=== PATIENT | female | born 1955 | race Caucasian/White ===

== ENCOUNTER 2017-04-06 07:00 | Inpatient (IN) ==
[2017-04-06] MEDS ORDERED: ONDANSETRON 4 MG/2 ML VIAL IV PRN (15:27)
[2017-04-06] MEDS ORDERED: ACETAMINOPHEN 325 MG TABLET PO PRN (15:27)
[2017-04-06] MEDS ORDERED: MAGNESIUM SULF RIDER 4 GM in PREMIX 1 EACH IV PRN (15:27)
[2017-04-06] MEDS ORDERED: DOCUSATE SODIUM 100 MG CAPSULE PO PRN (15:27)
[2017-04-06] MEDS ORDERED: MAGNESIUM SULF RIDER 2 GM in PREMIX 1 EACH IV PRN (15:27)
[2017-04-06] MEDS ORDERED: ZALEPLON 5 MG CAPSULE PO PRN (15:27)
[2017-04-06] MEDS ORDERED: POTASSIUM CHLORIDE 20 MEQ TABLET PO PRN (15:27)
[2017-04-06] MEDS ORDERED: diphenhydrAMINE CAP 25 MG CAPSULE PO PRN (15:27)
[2017-04-06] MEDS ORDERED: FUROSEMIDE 20 MG TABLET PO PRN (15:36)
[2017-04-06 15:55] LABS: Basophils % 0.6 % (0.0-0.8); Eosinophils # 0.1 10*3/uL (0.0-0.87); Hemoglobin 11.9 GM/DL (12.0-16.0); Immature Granulocytes % 0.2 %; Immature Granulocytes Absolute 0.01 #; Lymphocytes # 1.5 10*3/uL (1.4-4.0); Lymphocytes % 30.1 % (21.3-54.2); Mean Corpuscular HGB Conc 33.1 GM/DL (32-36); Mean Corpuscular Hemoglobin 29 PG (27-34); Mean Corpuscular Volume 87.6 FL (87-102); Mean Platelet Volume 11.1 FL (9.6-12.0); Monocytes # 0.5 10*3/uL (0.11-0.8); Neutrophils # 2.8 10*3/uL (1.4-7.4); Neutrophils % 57.1 % (38.7-73.9); Platelet Count 218 T/CUMM (130-400); Red Blood Count 4.11 MC/CUMM (3.8-5.5); Red Cell Distribution Width 15.2 % (9.3-17.3); White Blood Count 4.9 T/CUMM (4-12)
--- NOTE | 2017-04-06 15:56 | Cardiology History & Physical ---
Assessment and Plan - Time spent with patient Time spent with patient: Greater than 30 minutes (Due to assessment, plan, documentation, and medication review.) (1) Atrial fibrillation Status: Acute Assessment and plan: See plan of care listed below. Current Visit: Yes Qualifiers: Atrial fibrillation type: persistent Qualified Code(s): I48.1 - Persistent atrial fibrillation (2) Chronic anticoagulation Status: Chronic Assessment and plan: See plan of care listed below. Current Visit: Yes (3) Hypertension Status: Chronic Assessment and plan: See plan of care listed below. Current Visit: Yes Qualifiers: Hypertension type: essential hypertension Qualified Code(s): I10 - Essential (primary) hypertension (4) Mitral regurgitation Status: Chronic Assessment and plan: See plan of care listed below. Current Visit: No (5) History of GI bleed Status: Chronic Assessment and plan: See plan of care listed below. Current Visit: No History of Present Illness Chief complaint: persistent atrial fibrillation, sotalol load and cardioversion Sunday History of present illness: Industrial Designer: Dr. Cabezas/Dr. Lynn PCP: Dr. Orta Ms. Vasques is a 61 y/o WF who has a history of atrial fibrillation, chronic anticoagulation with Eliquis, hypertension, mitral regurgitation, bradycardia. She is a lifetime nonsmoker and has a family history of premature CAD. She was referred to Dr. Cabezas for EP evaluation due to symptomatic persistent atrial fibrillation. She first noticed AF in 2015, for which she underwent cardioversion, amiodarone, and digoxin. THis caused symptomatic bradycardia, with pauses up to 3 seconds, and meds were stopped. She had severe lower GI bleed, while being anticoagulated, underwent colon resection due to multiple polyps, the bleeding resolved. Now, she is able to tolerate Eliquis without issues. In 02/2017, the AF relapsed with RVR. She is now also on Metoprolol. She is feeling palpitations, intermittent lower extremity swelling, and less energy with the arrhythmia. She reports that she does snore but has not been tested for sleep apnea and is not interested in sleep evaluation at this time. Her blood pressure is usually well controlled. Her EKG at recent clinic visit on 04/10 showed atrial fibrillation with rate of 96, QRS 90ms. Echo done on revealed normal LV systolic function of 55%, moderate biatrial enlargement, moderate MR, mild TR with moderate pulmonary hypertension, PAP 44mmHg, no significant valvular disease. Ms. Vasques was admitted to the hospital today for inpatient sotalol load and cardioversion due to symptomatic arrhythmia. We will cycle daily EKGs and monitor throughout the weekend. Dr. Cabezas will assume care on Sunday when she will be scheduled for cardioversion if she remains in symptomatic persistent atrial fibrillation. She continues to have some mild dyspnea on exertion and palpitations and is in atrial fibrillation per impregnation operator. Dr. Mcallister to follow with further plan and addendum. IMPRESSION/PLAN: - PERSISTENT ATRIAL FIBRILLATION: Admit for sotalol load. Daily EKGs. NPO after midnight on Sunday in anticipation for possible DCCV Sunday. - CHRONIC ANTICOAGULATION: Continue Eliquis. Monitor CBC. - HYPERTENSION: Mildly elevated upon admission. Will continue home medications , monitor, and adjust accordingly. - MITRAL REGURGITATION: Moderate per echo on 04/03/17. This will likely limit success rate for lasting rhythm control. It has been discussed with the patient that depending on her clinical course with pharmacological management, she could be a candidate for ablation or pacemaker implant in the future. - HISTORY OF GI BLEED: Currently stable, no s/s of recent bleeding. Home Medications Medication Instructions Recorded Confirmed Type Calcium (Carbonate) [Oscal 500] 1 tablet PO DAILY 12/11/15 04/06/17 History Multivitamin [One Daily] 1 each PO DAILY 12/11/15 04/06/17 History Magnesium Oxide [Magnesium] 400 mg PO DAILY 03/22/16 04/06/17 History Lisinopril [Zestril] 5 mg PO DAILY 06/05/16 04/06/17 History Acetaminophen Tab [Tylenol Tab] 325 mg PO Q4H PRN #0 tablet 06/07/16 04/06/17 Rx Pantoprazole Tab [Protonix Tab] 40 mg PO DAILY #30 tablet 06/07/16 04/06/17 Rx HYDROcodone/ACETAMIN 7.5-325 1 tablet PO Q4H PRN #30 tablet 08/01/16 04/06/17 Rx [[place] 7.5-325] Apixaban [Eliquis] 5 mg PO BID #60 tablet 03/10/17 04/06/17 Rx Furosemide Tab [Lasix Tab] 20 mg PO DAILY PRN 04/06/17 04/06/17 History Metoprolol Succinate Xl [Toprol Xl] 50 mg PO BID 04/06/17 04/06/17 History Allergies Allergy/AdvReac Type Severity Reaction Status Date / Time Sulfa (Sulfonamide Allergy Unknown ITCHING Verified 07/18/16 13:54 Antibiotics) Review of systems: - Constitutional: Present: As per HPI. Absent: anorexia, chills, daytime sleepiness, excessive sweating, fever(s), frequent falls, headache(s), increased appetite, lethargy, malaise, night sweats, stops breathing during sleep, weakness, weight gain, weight loss, fatigue. - EENT Eyes: Present: As per HPI. Absent: blurry vision, diplopia, loss of vision Ears: Present: As per HPI. Absent: decreased hearing, ear discharge, ear pain Nose, mouth and throat: Present: As per HPI. Absent: dysphagia, epistaxis, headache(s), hoarseness, lip swelling, nasal congestion, neck mass, neck pain, sinus pressure, sore throat, throat swelling, tongue swelling, vertigo - Cardiovascular: Present: dyspnea on exertion, edema, palpitations, as per HPI. Absent: chest pain at rest, chest pain with activity, dyspnea, claudication, diaphoresis, radiating jaw, neck or arm pain, lightheadedness, orthopnea, PND - Respiratory: Present: dyspnea on exertion, as per HPI. Absent: dyspnea, cough , hemoptysis, wheezing, snoring, pain on inspiration - Gastrointestinal: Present: heartburn, As per HPI. Absent: abdominal pain, bloating, change in bowel habits, constipation, diarrhea, hematemesis, hematochezia, loose stools, melena, nausea, vomiting - Genitourinary: Present: As per HPI. Absent: difficulty urinating, dysuria, flank pain, hematuria, nocturia, urinary frequency, urinary incontinence - Musculoskeletal: Present: As per HPI. Absent: arthralgias, back pain, joint swelling, limited range of motion, muscle cramps, muscle weakness, myalgias - Neurological: Present: disequilibrium, As per HPI. Absent: abnormal gait, abnormal speech, behavioral changes, confusion, convulsions, dizziness, focal weakness, frequent falls, headache(s), memory loss, numbness, paresthesias, radicular pain, syncope, tremor(s) - Psychiatric: Present: depression, As per HPI. Absent: anxiety, confusion, panic attacks - Endocrine: Present: As per HPI. Absent: cold intolerance, fatigue, heat intolerance, polydipsia, polyphagia - Hematologic/Lymphatic: Present: As per HPI. Absent: easy bleeding, easy bruising, lymphadenopathy Medical,Surgical,& Family Hx - Medical History Cardio: History of: Cardiac Dysrhythmia (atrial fibrilation - DCCV 03/22/2016), Congenital Heart Disease ("leaky valve"), Hypertension, Valvular Heart Disease ( mitral regurgitation), Cardiovascular Problems (bradycardia) No history of: Cerebrovascular Disease, CHF Neurology: History of: Vertigo No history of: Seizures Genitourinary: No history of: Bladder Problem, Kidney Stones Gastrointestinal: History of: GERD, Gastrointestinal Bleed, Hemorrhoids Musculoskeletal: History of: Osteoporosis Hematology: History of: Anemia, Blood Transfusion Reaction (4 units of blood on 2015) Reproductive: No history of: Breast Cancer Other: History of: Miscellaneous Medical Problems (lumpectomy) No history of: Anesthesia Reactions, Cancer - Surgical History Cardiac Surgeries: Patient Denies: Cardiac Catheterization Thoracic Surgeries: Patient denies;: Organ Transplant Neurologic Surgeries: Patient denies: Neurologic Surgery HEENT Surgeries: Surgical HX of: Eye Surgery (Lasik) Patient denies: Tonsilectomy & Adenoidectomy Abdominal Surgeries: Surgical HX of: Abdominal Surgery (Colectomy 06/2016), EGD Patient denies: Appendectomy, Cholecystectomy, Colonoscopy, Hernia Repair Reproductive Surgeries: Surgical HX of;: Breast Surgery (right lumpectomy) Patient denies;: Hysterectomy Orthopedic Surgeries: Patient denies;: Orthopedic Surgery, Total Hip Replacement, Total Knee Replacement - Family History Family History: Reports;: Family Cancer (mother lung ca (age 68) - smoker, emphysema), Family Heart Disease (father from [place] at age 55, had CAD), Family Hypertension - Social History Smoking Status: Never smoker Frequency of Alcohol Use: Occasionally Type of Drug Use: None Marital Status: Lives With:: Spouse Functional capacity: independent ambulation Cardiology Physical Exam - Constitutional Vitals: Vital Signs Temp Pulse Resp BP Pulse Ox 98.3 F 89 20 161/86 100 04/06/17 15:13 04/06/17 15:13 04/06/17 15:13 04/06/17 15:13 04/06/17 15:13 Intake and Output 04/06/17 04/06/17 04/06/17 06:59 14:59 22:59 Other: Weight 165 lb Patient Weight 04/07/17 06:59 Weight 165 lb Exam: General appearance: Appears well. Pleasant and cooperative. Overweight, no acute distress. Head exam: Present: normal inspection, normocephalic, atraumatic. Absent: hematoma, laceration Eye exam: Present: EOMI. Absent: conjunctival injection, nystagmus, periorbital swelling, scleral icterus, laceration to eyelids, jaundice Pupils: Present: PERRL. Absent: constricted, dilated, fixed, irregular, unequal ENT exam: Present: normal exam, normal external ear exam, mucous membranes moist. Neck exam: Present: normal inspection, midline trachea. Absent: masses, lymphadenopathy, tenderness, thyromegaly, carotid bruit Respiratory exam: Present: clear to auscultation bilaterally. Absent: accessory muscle use, chest wall tenderness, rales, rhonchi, wheezing. Cardiovascular exam: Present: regular rate and rhythm. Absent: gallop, JVD, rubs, murmur GI/Abdominal exam: Present: normal bowel sounds, soft. Absent: distended, firm , hernia, mass, tenderness. Extremities exam: Present: Normal Gait, No Clubbing, No Cyanosis, Upper Extr. Pulses 2+, Lower Extr. Pulses 2+, No edema. Capillary refill less than 3 seconds. Musculoskeletal: Present: No Fluid Collection, No Pain, Normal Range of Motion Back exam: Present: normal inspection. Absent: muscle spasm, vertebral tenderness Neurological exam: Present: awake, alert, oriented X3, Moves all extremities well without hemiparesis or paralysis. Grossly intact without resting or essential tremor Psychiatric exam: Present: normal affect, normal mood Skin exam: Present: normal color, warm, dry, intact. Absent: cyanosis, diaphoretic, rash, urticaria Result/EKG - Labs CBC & BMP: 04/06/17 15:45 04/06/17 15:45 Lab Results: I have reviewed the past 24 hour labs - EKG EKG results: interpreted by me EKG shows: atrial fibrillation
--- NOTE | 2017-04-06 16:08 | Order Completion Report ---
See report scanned to EMR
[2017-04-06 16:19] LABS: Osmolality,Calculated 282.3 MOS/KG (273-304); Potassium 4.2 MMOL/L (3.5-5.1)
[2017-04-06] MEDS: CALCIUM (CARBONATE) 500 MG TABLET PO SCH (16:32)
[2017-04-06] MEDS: MAGNESIUM OXIDE 400 MG TABLET PO SCH (16:33)
[2017-04-06] MEDS: LISINOPRIL 5 MG TABLET PO SCH (16:33)
[2017-04-06] MEDS: PANTOPRAZOLE 40 MG TABLET PO SCH (16:33)
--- NOTE | 2017-04-06 17:15 | XRay Report ---
History: Shortness of breath Date: 04/06/2017 Study: Chest x-ray PA and lateral Comparison exam: March 10, 2017 The cardiac silhouette is upper normal in size. There is no mediastinal mass. There is no layering pleural effusion. The lungs are well-expanded and generally clear without confluent infiltrate. Osseous structures are unchanged. Impression: No acute cardiopulmonary process. No significant interval change PROCEDURE INTERPRETED AT [facility] DEPARTMENT OF RADIOLOGY Final Report Signed by: Dr. Michelle Raymundo
[2017-04-06 19:38] LABS: Apearance,Urine CLEAR (Clear); Bilirubin,Urine Negative (Negative); Blood, Urine Negative (Negative); Glucose,Urine (UA) Negative (Negative); Ketones,Urine Negative (Negative); Nitrite,Urine Negative (Negative); Protein,Urine Negative; Urine Color Colorless (Yellow); Urine Specific Gravity 1.003 (1.001-1.035); Urine Urobilinogen < 2.0 EU/DL (0.2-1.0); WBC,Urine 1 /HPF (0-6)
[2017-04-06] MEDS ORDERED: METOPROLOL SUCCINATE XL 50 MG TABLET PO SCH (21:00)
[2017-04-06] MEDS: APIXABAN 5 MG TABLET PO SCH (22:03)
[2017-04-06] MEDS: SOTALOL 80 MG TABLET PO SCH (22:04)
[2017-04-07 04:11] LABS: Basophils % 0.9 % (0.0-0.8); Eosinophils # 0.1 10*3/uL (0.0-0.87); Eosinophils % 2.5 % (0.00-10.9); Hematocrit 35.8 VOL% (35.7-47.0); Hemoglobin 11.6 GM/DL (12.0-16.0); Immature Granulocytes % 0.2 %; Immature Granulocytes Absolute 0.01 #; Lymphocytes # 1.5 10*3/uL (1.4-4.0); Lymphocytes % 33.8 % (21.3-54.2); Mean Corpuscular HGB Conc 32.4 GM/DL (32-36); Mean Corpuscular Hemoglobin 28 PG (27-34); Mean Corpuscular Volume 86.3 FL (87-102); Mean Platelet Volume 11.2 FL (9.6-12.0); Monocytes # 0.5 10*3/uL (0.11-0.8); Monocytes % 11.3 % (1.7-12.7); Neutrophils # 2.3 10*3/uL (1.4-7.4); Neutrophils % 51.3 % (38.7-73.9); Platelet Count 197 T/CUMM (130-400); Red Blood Count 4.15 MC/CUMM (3.8-5.5); Red Cell Distribution Width 15.2 % (9.3-17.3); White Blood Count 4.4 T/CUMM (4-12)
[2017-04-07 04:36] LABS: Calcium 9.3 MG/DL (8.5-10.1); Magnesium 1.9 MG/DL (1.8-2.4); Osmolality,Calculated 285.1 MOS/KG (273-304); Potassium 4.5 MMOL/L (3.5-5.1)
--- NOTE | 2017-04-07 08:44 | Order Completion Report ---
See report scanned to EMR
[2017-04-07] MEDS: PANTOPRAZOLE 40 MG TABLET PO SCH (09:56)
[2017-04-07] MEDS: MULTIVITAMIN (CENTRUM) TABLET PO SCH (09:56)
[2017-04-07] MEDS: MAGNESIUM OXIDE 400 MG TABLET PO SCH (09:56)
[2017-04-07] MEDS: SOTALOL 80 MG TABLET PO SCH ×2 (09:57→20:32)
[2017-04-07] MEDS: APIXABAN 5 MG TABLET PO SCH ×2 (09:57→20:31)
[2017-04-07] MEDS: CALCIUM (CARBONATE) 500 MG TABLET PO SCH (09:58)
[2017-04-07] MEDS: LISINOPRIL 5 MG TABLET PO SCH (10:05)
--- NOTE | 2017-04-07 14:28 | Cardiology Progress Note ---
Cardiology - PN: Subj Interval history: Cardiology note 61-year-old woman with recurrent symptomatic paroxysmal atrial fibrillation. Currently receiving sotalol loading 80 mg twice daily and Eliquis 5 mg twice daily. Telemetry shows atrial fib ventricular rate in the 90-100 range. O2 sat 96% room air. She denies chest pain palpitations or leg edema. Irregular rhythm no murmur Clear lungs Abdomen benign No leg edema Impression Recurrent symptomatic atrial fibrillation Chronic anticoagulation Hypertension Mitral regurgitation Echo Doppler done 04/03/2017 EF 55% with moderate biatrial enlargement moderate MR, moderate TR PA pressure 45 and no effusion Lifetime non-smoker Status post cardioversion 2015 she developed symptomatic bradycardia with pauses on amiodarone Plan Sotalol 80 mg twice daily Eliquis 5 mg twice daily Cardioversion Sunday Exam (Progress Note) - Constitutional Vitals: Period Temp Pulse Resp BP Sys/Hernandez Pulse Ox Last 24 Hr 96.4 F-98.3 F 69-89 16-20 133-161/84-90 98-100 Result/EKG - Labs CBC & BMP: 04/07/17 03:44 04/07/17 03:44 Labs: Laboratory Results - last 24 hr 04/06/17 04/06/17 04/06/17 15:45 15:45 18:00 WBC 4.9 RBC 4.11 Hgb 11.9 L Hct 36.0 MCV 87.6 MCH 29 MCHC 33.1 RDW 15.2 Plt Count 218 MPV 11.1 Neut % (Auto) 57.1 Lymph % (Auto) 30.1 [place] % (Auto) 11.0 Eos % (Auto) 1.0 Baso % (Auto) 0.6 Neut # (Auto) 2.8 Lymph # (Auto) 1.5 [place] # (Auto) 0.5 Eos # (Auto) 0.1 Baso # (Auto) 0.0 Immature Gran % 0.2 Nucleated RBC % 0.0 Immature Gran # 0.01 Nucleated RBCs # 0.00 Immature Plt Fraction 0.0 Sodium 141 Potassium 4.2 Chloride 107 Carbon Dioxide 30 Anion Gap 8.2 BUN 22 H Creatinine 1.40 H GFR Calculation 43 BUN/Creatinine Ratio 15.00 Glucose 82 Calculated Osmolality 282.3 Calcium 9.0 Magnesium Urine Color Colorless Urine Appearance Clear Urine pH 7.0 Ur Specific Carrier 1.003 Urine Protein Negative Urine Glucose (UA) Negative Urine Ketones Negative Urine Blood Negative Urine Nitrate Negative Urine Bilirubin Negative Urine Urobilinogen < 2.0 H Urine Leukocytes Negative Urine WBC 1 Ur Culture Indicated? Not indicated 04/07/17 04/07/17 03:44 03:44 WBC 4.4 RBC 4.15 Hgb 11.6 L Hct 35.8 MCV 86.3 L MCH 28 MCHC 32.4 RDW 15.2 Plt Count 197 MPV 11.2 Neut % (Auto) 51.3 Lymph % (Auto) 33.8 [place] % (Auto) 11.3 Eos % (Auto) 2.5 Baso % (Auto) 0.9 H Neut # (Auto) 2.3 Lymph # (Auto) 1.5 [place] # (Auto) 0.5 Eos # (Auto) 0.1 Baso # (Auto) 0.0 Immature Gran % 0.2 Nucleated RBC % 0.0 Immature Gran # 0.01 Nucleated RBCs # 0.00 Immature Plt Fraction 0.0 Sodium 142 Potassium 4.5 Chloride 108 H Carbon Dioxide 26 Anion Gap 12.5 BUN 20 H Creatinine 1.00 GFR Calculation 64 BUN/Creatinine Ratio 20.00 Glucose 100 Calculated Osmolality 285.1 Calcium 9.3 Magnesium 1.9 Urine Color Urine Appearance Urine pH Ur Specific Carrier Urine Protein Urine Glucose (UA) Urine Ketones Urine Blood Urine Nitrate Urine Bilirubin Urine Urobilinogen Urine Leukocytes Urine WBC Ur Culture Indicated?
[2017-04-08 04:50] LABS: Basophils # 0.1 10*3/uL (0.0-0.2); Basophils % 1.3 % (0.0-0.8); Eosinophils # 0.1 10*3/uL (0.0-0.87); Eosinophils % 2.8 % (0.00-10.9); Hemoglobin 13.1 GM/DL (12.0-16.0); Immature Granulocytes % 0.3 %; Immature Granulocytes Absolute 0.01 #; Lymphocytes # 1.3 10*3/uL (1.4-4.0); Lymphocytes % 32.5 % (21.3-54.2); Mean Corpuscular HGB Conc 32.8 GM/DL (32-36); Mean Corpuscular Hemoglobin 28 PG (27-34); Mean Corpuscular Volume 86.8 FL (87-102); Mean Platelet Volume 12.3 FL (9.6-12.0); Monocytes # 0.4 10*3/uL (0.11-0.8); Monocytes % 11.1 % (1.7-12.7); Platelet Count 130 T/CUMM (130-400); Red Blood Count 4.61 MC/CUMM (3.8-5.5); Red Cell Distribution Width 15.2 % (9.3-17.3); White Blood Count 3.9 T/CUMM (4-12)
[2017-04-08 05:19] LABS: Calcium 9.6 MG/DL (8.5-10.1); Magnesium 2.1 MG/DL (1.8-2.4); Osmolality,Calculated 283.1 MOS/KG (273-304); Potassium 4.9 MMOL/L (3.5-5.1)
[2017-04-08] MEDS: CALCIUM (CARBONATE) 500 MG TABLET PO SCH (08:11)
[2017-04-08] MEDS: MAGNESIUM OXIDE 400 MG TABLET PO SCH (08:11)
[2017-04-08] MEDS: PANTOPRAZOLE 40 MG TABLET PO SCH (08:11)
[2017-04-08] MEDS: SOTALOL 80 MG TABLET PO SCH ×2 (08:11→20:36)
[2017-04-08] MEDS: LISINOPRIL 5 MG TABLET PO SCH (08:11)
[2017-04-08] MEDS: MULTIVITAMIN (CENTRUM) TABLET PO SCH (08:11)
[2017-04-08] MEDS: APIXABAN 5 MG TABLET PO SCH ×2 (08:11→20:37)
--- NOTE | 2017-04-08 08:11 | Order Completion Report ---
See report scanned to EMR
--- NOTE | 2017-04-08 09:52 | Cardiology Progress Note ---
Cardiology - PN: Subj Interval history: Cardiology note 61-year-old woman with recurrent symptomatic paroxysmal atrial fibrillation. Currently receiving sotalol 80 mg twice daily and Eliquis 5 mg twice daily Telemetry shows atrial fib ventricular rate around 90 O2 sat 98% on room air. Blood pressure 118/80 Weight 75.7 kg Irregular rhythm no murmur Decreased breath sounds but clear Abdomen soft benign No leg edema Impression Recurrent symptomatic atrial fibrillation Chronic anticoagulation Hypertension Mitral regurgitation Lifetime non-smoker Status post cardioversion 2015. She developed symptomatic bradycardia with pauses on amiodarone Echo Doppler done April 03, 2017 EF 55% with moderate biatrial enlargement, moderate MR, moderate TR PA pressure 45 and no effusion Plan Continue sotalol 80 mg twice daily Continue Eliquis 5 mg twice daily Cardioversion Sunday with Dr. Cabezas Exam (Progress Note) - Constitutional Vitals: Period Temp Pulse Resp BP Sys/Hernandez Pulse Ox Last 24 Hr 97.3 F-99.2 F 74-88 16-20 117-137/73-92 97-99 Result/EKG - Labs CBC & BMP: 04/08/17 03:48 04/08/17 03:48 Labs: Laboratory Results - last 24 hr 04/08/17 04/08/17 03:48 03:48 WBC 3.9 L RBC 4.61 Hgb 13.1 Hct 40.0 MCV 86.8 L MCH 28 MCHC 32.8 RDW 15.2 Plt Count 130 D MPV 12.3 H Neut % (Auto) 52.0 Lymph % (Auto) 32.5 [place] % (Auto) 11.1 Eos % (Auto) 2.8 Baso % (Auto) 1.3 H Neut # (Auto) 2.0 Lymph # (Auto) 1.3 L [place] # (Auto) 0.4 Eos # (Auto) 0.1 Baso # (Auto) 0.1 Immature Gran % 0.3 Nucleated RBC % 0.0 Immature Gran # 0.01 Nucleated RBCs # 0.00 Immature Plt Fraction 0.0 Sodium 142 Potassium 4.9 Chloride 109 H Carbon Dioxide 26 Anion Gap 11.9 BUN 19 H Creatinine 0.90 GFR Calculation 73 BUN/Creatinine Ratio 21.00 H Glucose 88 Calculated Osmolality 283.1 Calcium 9.6 Magnesium 2.1
[2017-04-09 06:28] LABS: Basophils % 0.9 % (0.0-0.8); Eosinophils # 0.1 10*3/uL (0.0-0.87); Eosinophils % 1.9 % (0.00-10.9); Immature Granulocytes % 0.2 %; Immature Granulocytes Absolute 0.01 #; Lymphocytes # 1.2 10*3/uL (1.4-4.0); Lymphocytes % 27.6 % (21.3-54.2); Mean Corpuscular HGB Conc 33.3 GM/DL (32-36); Mean Corpuscular Hemoglobin 29 PG (27-34); Mean Corpuscular Volume 85.7 FL (87-102); Monocytes # 0.5 10*3/uL (0.11-0.8); Monocytes % 10.8 % (1.7-12.7); Neutrophils # 2.5 10*3/uL (1.4-7.4); Neutrophils % 58.6 % (38.7-73.9); Platelet Count 211 T/CUMM (130-400); Red Blood Count 4.55 MC/CUMM (3.8-5.5); White Blood Count 4.3 T/CUMM (4-12)
[2017-04-09 06:55] LABS: Calcium 8.9 MG/DL (8.5-10.1); Magnesium 2.2 MG/DL (1.8-2.4); Osmolality,Calculated 284.3 MOS/KG (273-304); Potassium 4.6 MMOL/L (3.5-5.1)
--- NOTE | 2017-04-09 07:21 | Order Completion Report ---
See report scanned to EMR
[2017-04-09] MEDS ORDERED: PROPOFOL 200 MG/20 ML VIAL IV ONE (08:22)
--- NOTE | 2017-04-09 08:23 | History and Physical Update ---
Sedation H&P Update - History and Physical H&P was reviewed, the patient examined and there: are no changes in the patients condition since last H&P was completed. - Dictation Physical: refer to H&P completed by admitting physician - Physical Exam Mental Status: alert and oriented Heart: other (irregular, tachy) Lung: clear to auscultation Abdomen: within normal limits Vitals: within normal limits - Sedation Plan for Sedation: MAC Patient Consent: Procedure disscussed with patient and patinet has consented., Risks and benefits were discussed with patient,including infection,, bleeding, injury to surrounding structures, seizure, temporary nerve, Patient understands and accepts potential risks/benefits and agrees to ASA Class: III Airway Assessment: Class II: Soft palate, uvula, fauces visible
--- NOTE | 2017-04-09 08:36 | Electrophysiology Report ---
Date of Procedure:: 04/09/17 Pre-op diagnosis: AF Post-op diagnosis: same Procedure: PROCEDURAL SUMMARY Synchronized DC cardioversion. Successful procedure, no complications. Timeout was performed before the procedure. Sedation was provided by the anesthesia team. The patient was anticoagulated with Eliquis. No missed doses in the past 4 weeks. The rhythm was atrial fibrillation. Synchronized DC cardioversion was performed with a 200 J biphasic shock. Sinus rhythm was restored. The patient woke up uneventfully from sedation. There were no complications. Plan: -Continue anticoagulation -continue sotalol Anesthesia: MAC Surgeon / Physician: Karri Cabezas Box Press Operator: other (carlene) Estimated blood loss: none Specimens: none sent Condition: stable Disposition: floor
[2017-04-09] MEDS ORDERED: HYDROCORTISONE 1% CREAM 28 GM TUBE TOP PRN (08:37)
[2017-04-09] MEDS ORDERED: SOTALOL 80 MG TABLET PO SCH (08:38)
--- NOTE | 2017-04-09 08:43 | Discharge Summary ---
Hospital Course - Hospital Course Hospital Course: Ms. Vasques is a 61-year-old female, followed by Dr. Lynn. She was referred for EP evaluation due to symptomatic, persistent atrial fibrillation. Moderate mitral regurgitation. In 2016, she had cardioversion and was on amiodarone and digoxin, which showed mildly symptomatic bradycardia, pauses, the medications were stopped. The A. fib recurred and remained symptomatic. She is anticoagulated with Eliquis. She was admitted for sotalol load, elective cardioversion. No proarrhythmia or significant QTc prolongation was noted, GFR around 60. Successful cardioversion was performed. Sinus rhythm resumed, without bradycardia or conversion post. -Discharge home today, follow-up with Dr. Cabezas in 2 weeks. Check BMP/magnesium prior to the visit. -No driving today -Continue sotalol 80 mg twice daily. -Metoprolol was stopped. Blood pressure remained well controlled. -Continue Eliquis -Hydrocortisone cream and Benadryl as needed. After her prior cardioversion, she had skin issues where the patch was applied -If she remains symptomatic from AF, despite medical management, ablation as an option. Discharge Plan - Discharge Data Disposition: Disch To Home/Self Care Condition at Discharge: Stable Discharge Diet: advance to your usual diet Activity: resume usual activities as tolerated Hygiene: no restrictions Weight Bearing at Discharge: full weight bearing Driving: not for (Today) Contact your physician if you experience:: fever over 101, Difficulty voiding, Redness or swelling, Nausea/Vomiting, Shortness of breath, Bleeding, pain uncontrolled by pain medications - Discharge Medications New Hydrocortisone 1% Cream 1 applic TOP BID PRN #1 applic PRN Reason: Skin Irritation diphenhydrAMINE CAP [Benadryl Cap] 25 mg PO Q6H PRN #20 capsule PRN Reason: Itching Sotalol [Betapace] 80 mg PO BID #180 tablet Continue Calcium (Carbonate) [Oscal 500] 1 tablet PO DAILY Multivitamin [One Daily] 1 each PO DAILY Magnesium Oxide [Magnesium] 400 mg PO DAILY Lisinopril [Zestril] 5 mg PO DAILY HYDROcodone/ACETAMIN 7.5-325 [[place] 7.5-325] 1 tablet PO Q4H PRN #30 tablet PRN Reason: Pain Moderate (4-7) Apixaban [Eliquis] 5 mg PO BID #60 tablet Furosemide Tab [Lasix Tab] 20 mg PO DAILY PRN PRN Reason: Edema Acetaminophen Tab [Tylenol Tab] 325 mg PO Q4H PRN #0 tablet PRN Reason: fever, headache/body aches Pantoprazole Tab [Protonix Tab] 40 mg PO DAILY #30 tablet Discontinued Metoprolol Succinate Xl [Toprol Xl] 50 mg PO BID - Follow Up or Referral Follow Up: Karri Cabezas MD [Physician] - 2 Weeks (Check BMP/Mg prior to the visit) - Forms/Instructions Exam - Constitutional Vitals: Period Temp Pulse Resp BP Sys/Hernandez Pulse Ox Last 24 Hr 98.2 F-99.0 F 74-100 16-20 98-132/68-96 95-100 General appearance: no acute distress, over weight - Head Head exam: Present: normal inspection - Eye Eye exam: Absent: conjunctival injection, scleral icterus Pupils: Absent: dilated - ENT ENT exam: Absent: normal external ear exam - Neck Neck exam: Present: normal inspection - Respiratory Respiratory exam: Present: clear to auscultation bilaterally. Absent: chest wall tenderness - Cardiovascular Cardiovascular exam: Present: regular rate and rhythm. Absent: JVD, systolic murmur, tachycardia - GI/Abdominal GI/Abdominal exam: Present: normal bowel sounds. Absent: distended - Extremities Exam Extremities exam: Present: normal inspection, normal capillary refill. Absent: edema - Back Exam Back exam: Present: normal inspection - Neurological Exam Neurological exam: Present: alert, oriented X3 - Psychiatric Psychiatric exam: Present: normal affect, normal mood - Skin Skin exam: Present: normal color, warm. Absent: cyanosis Discharge Results Procedures and tests throughout hospitalization: Pending Orders 04/09/17 07:48 CL heart Routine Labs on day of discharge: Labs from last 24 hours 04/09/17 04/09/17 06:05 06:05 WBC 4.3 RBC 4.55 Hgb 13.0 Hct 39.0 MCV 85.7 L MCH 29 MCHC 33.3 RDW 15.0 Plt Count 211 D MPV 11.0 Neut % (Auto) 58.6 Lymph % (Auto) 27.6 [place] % (Auto) 10.8 Eos % (Auto) 1.9 Baso % (Auto) 0.9 H Neut # (Auto) 2.5 Lymph # (Auto) 1.2 L [place] # (Auto) 0.5 Eos # (Auto) 0.1 Baso # (Auto) 0.0 Immature Gran % 0.2 Nucleated RBC % 0.0 Immature Gran # 0.01 Nucleated RBCs # 0.00 Immature Plt Fraction 0.0 Sodium 141 Potassium 4.6 Chloride 107 Carbon Dioxide 25 Anion Gap 13.6 BUN 24 H Creatinine 1.10 H GFR Calculation 57 BUN/Creatinine Ratio 21.00 H Glucose 95 Calculated Osmolality 284.3 Calcium 8.9 Magnesium 2.2 - Imaging and Cardiology Cardiology Procedure: image reviewed by me, report reviewed by me DS: Provider Date of admission: 04/06/17 14:38 Primary care physician: Angelina Stroud Attending physician on admission: Karri Cabezas MD Discharging clinician: Karri Cabezas MD Expected date of discharge: 04/09/17
--- NOTE | 2017-04-09 08:46 | Order Completion Report ---
See report scanned to EMR
--- NOTE | 2017-04-09 08:51 | Anesthesia Post-Op ---
Anesthesia Post OP - Post Ansesthetic Evaluation Patient seen in post op: Yes Resp: within normal limits CV: within normal limits Mental: within normal limits Temp: within normal limits [id number]: within normal limits Nausea and Vomiting: within normal limits Pain: within normal limits
[2017-04-09] MEDS: MAGNESIUM OXIDE 400 MG TABLET PO SCH (10:13)
[2017-04-09] MEDS: APIXABAN 5 MG TABLET PO SCH (10:13)
[2017-04-09] MEDS: MULTIVITAMIN (CENTRUM) TABLET PO SCH (10:13)
[2017-04-09] MEDS: LISINOPRIL 5 MG TABLET PO SCH (10:13)
[2017-04-09] MEDS: CALCIUM (CARBONATE) 500 MG TABLET PO SCH (10:13)
[2017-04-09] MEDS: PANTOPRAZOLE 40 MG TABLET PO SCH (10:13)
--- NOTE | 2017-04-09 11:55 | Order Completion Report ---
See report scanned to EMR
[2017-04-09 12:37] VITALS: BP 105/72
== END 2017-04-09 13:00 | disposition home or self-care (01) | DRG 310 ==
LOC: N.ADMINP 14:38 → N.TELEN 14:48
PROVIDERS: ADMIT Internal Medicine Clinical Cardiac Electrophysiology; ATTEND Internal Medicine Clinical Cardiac Electrophysiology